=== PATIENT | male | born 1965 | race Caucasian/White ===

== ENCOUNTER 2017-04-19 10:00 | Day surgery (SDC) | payer BC, OTHER ==
[~2017-04-19] VITALS: Ht 188 cm; Wt 117.9 kg
[2017-04-19] VITALS (17 sets, daily range): BP systolic 106–233; BP diastolic 85–102
[~2017-04-19 10:00] MED LIST: ATEN100T PO; ATN50T; BNZ40T; CATHETER FLUSH 10 ML SYR IV PRN; CLON0.3T4; CRV25T; DXZS2T; FLD5TCR; HCT25T; HYDR-3002; HYDR-34; HYDR25TA4 PO; KCL20TCR; LOVA20TA2 PO; LSNP20T; LVF500T; LVST20T; METF1000 PO; MTF500T; SPIR25TA PO
--- NOTE | 2017-04-19 10:56 | Cardiology History & Physical ---
HPI-Cardiology Cardiology H&P Date of Admission 04-19-17 Primary Care Physician Doron Joshua DO Attending Physician Elia Vela MD Facp Fac Ccds Consulting Physician JAMES Mr. Naidu is a 52 year old male admitted as a direct admit to ICU 5 from stress lab today. He reports he has had 2 episodes while at work of a sudden onset of diaphoresis, nausea, generalized weakness, chest discomfort and shortness of breath. He reports the shortness of breath can last for 20-30 minutes, but the weakness can persist for several hours. He reports at times he feels like he can not get a good breath in and this can occur without r/t physical exertion. No c/o palpitations, syncope or near syncope. No c/o LE edema. He does not report any chest discomfort at this time. No c/o dyspnea at this time. Review of Systems-Cardiology Review of Systems Constitutional: As described under HPI, No As described under HPI, No no symptoms reported, No chills, No fever, No lightheadedness Eyes: No As described under HPI, No no symptoms reported, No blindness, No blurred vision, No contact lenses, No drainage, No decreased acuity, No foreign body sensation, No pain, No vision change Ears/Nose/Throat: No As described under HPI, No no symptoms reported, No chronic hearing loss, No ear discharge, No ear pain, No nasal drainage, No ulcerations Respiratory: No no symptoms reported, As described under HPI, No As described under HPI, No cough, No orthopnea, No shortness of breath, No SOB with excertion Cardiovascular: No no symptoms reported, As described under HPI, No As described under HPI, No chest pain, No edema, No irregular heart rate, No lightheadedness, No palpitations Gastrointestinal: No no symptoms reported, No As described under HPI, No abdomen distended, No abdominal pain, No blood streaked bowels, No constipation , No diarrhea, No nausea, No vomiting, No stool coloration changes Genitourinary: No As described under HPI, No burning, No dysuria, No discharge , No frequency, No flank pain, No hematuria, No urgency Skin: No rash, No skin related problems, No ulcerations Psychiatric/Neurological: No anxiety, No depression, No focal weakness, No seizure, No syncope Hematologic: No bleeding abnormalities HIY-Orpmjv-Chcsiz Hx Patient Social History Recent Foreign Travel: No Past Medical History PMH As described under Assessment. Family Medical History Family Medical History: He reports is father had HTN. He reports a sister with DM. No family h/o premature CAD or SCD. Allergies and Home Medications Allergies Coded Allergies: No Known Drug Allergies (Verified , 03/24/16) Home Medications Atenolol 100 Mg Tablet, 100 MG PO DAILY, (Reported) Canagliflozin 300 Mg Tablet, 300 MG PO DAILY, (Reported) Hydrochlorothiazide 25 Mg Tablet, 50 MG PO BID, (Reported) Lovastatin 20 Mg Tablet, 20 MG PO DAILY, (Reported) Metformin HCl 1,000 Mg Tablet, 1,000 MG PO BID, (Reported) Spironolactone 25 Mg Tablet, 25 MG PO BID, (Reported) Physical Exam-Cardiology Physical Exam Vital Signs/I&O Vital Sign - Last 12Hours 04/19/17 04/19/17 04/19/17 04/19/17 07:59 08:04 08:09 08:20 Pulse 70 93 120 89 B/P (MAP) 120/86 167/85 233/94 139/98 Pulse Ox 98 98 98 98 04/19/17 04/19/17 04/19/17 04/19/17 08:23 08:27 08:29 08:31 Pulse 91 91 89 89 B/P (MAP) 137/96 132/95 124/96 124/98 Pulse Ox 98 98 98 04/19/17 13:00 Pulse 66 Capillary Refill : Constitutional: appears stated age, No apparent distress, well-developed, well- nourished HEENT: PERRL, No discharge, hearing is well preserved, oral hygience is good, No ulceration, No xanthelasmas are seen Neck: No carotid bruit, carotid pulses are 2 + bilaterally Respiratory: No accessory muscle use, No respiratory distress, chest expansion is symmetric, chest is bilaterally symmetric, lungs clear to percussion, lungs clear to auscultation Cardiovascular: regular rate-rhythm, No JVD, S1 and S2 Gastrointestinal: No tender, soft, round, audible bowel sounds, No spleenomegaly Extremities: No clubbing, No cyanosis, No significant edema Neurologic/Psychiatric: alert, oriented x 3, power is 5/5 both on sides Skin: No rash, No ulcerations Data Review Labs Laboratory Tests 04/19/17 10:58: Prothrombin Time 12.7, INR Comment 1.0, Sodium Level 137, Potassium Level 3.1L, Chloride Level 100, Carbon Dioxide Level 21, Anion Gap 16H, Blood Urea Nitrogen 24H, Creatinine 1.24, Estimat Glomerular Filtration Rate > 60, BUN/Creatinine Ratio 19, Glucose Level 271H, Calcium Level 9.9, Magnesium Level 2.2, Total Bilirubin 1.1H, Aspartate Amino Transf (AST/SGOT) 13, Alanine Aminotransferase ( ALT/SGPT) 26, Alkaline Phosphatase 61, Total Protein 7.4, Albumin 4.4, Triglycerides Level 468H, Cholesterol Level 237H, LDL Cholesterol Direct 109, VLDL Cholesterol 94H, HDL Cholesterol 35L A/P-Cardiology Assessment/Admission Diagnosis Coronary ischemia, as suggested by symptoms and stress test today Abnormal stress test on 04-19-17 Chest discomfort with dyspnea of undetermined etiology HTN - reports high blood pressure since his teen years. Was previously being monitored at [facility], but has been controlled and has not seen then in 8- 9 years Reports h/o AAA for which he was following with [facility] every 6 months, but has not had an u/s in 7-8 years HLD - statin tx followed by his PCP DM H/O lap band surgery Reports h/o "enlarged heart since his teen years" BMI of approx 33 Discussion and Recomendations Abnormal stress test along with episodes of chest discomfort and dyspnea with risk factors as listed above. We advise cardiac cath to be done. We have discussed with him and his family the procedure, risks, benefits and potential complications of cardiac cath with possible ad hoc coronary intervention. He provides informed consent. We will proceed tomorrow or sooner if indicated. We will continue his home medications including BB and statin. We will start ASA 81 mg daily. We will do echocardiogram to evaluate structure. We will do an aorto u/s d/t h/o AAA for which he has not had f/u on in many years. Further recommendations will be based on his hospital course. This H&P is being scribed by Ankur Rodriguez APRN on behalf of Dr. Vela after discussion regarding plan of care. Physician Assessment Physician Assessment No cp at this time Lungs: clear Cor: reg with soft JORDAN at cardiac base Ext: no C/C/E A&R * As documented in our note above, that I updated at the time of this writing, and as documented below * We recommend card cath for further eval treatment. I discussed the rationale, procedure, risks, and benefits of card cath and ad hoc cor intervention with him. He understands and provides informed consent * I also discussed his case in detail with Dr Joshua this am FRANCA RODRIGUEZ Apr 19, 2017 10:55 ELIA VELA MD FACP [facility] CCDS Apr 19, 2017 14:25
[2017-04-19] MEDS ORDERED: ASPIRIN 81 MG CHEW (CHILDREN'S ASA) PO ONE (11:15)
[2017-04-19] MEDS ORDERED: SPIR25TA3 PO (11:16)
[2017-04-19] MEDS ORDERED: CANA300T PO (11:16)
[2017-04-19 11:18] LABS: PROTHROMBIN TIME PATIENT 12.7 SEC (12.2-14.7)
[2017-04-19 11:28] LABS: ALANINE AMINOTRANSFERASE 26 U/L (0-55); ALBUMIN 4.4 GM/DL (3.2-4.5); ANION GAP 16 MMOL/L (5-14); ASPARTATE AMINO TRANSFERASE 13 U/L (5-34); BILIRUBIN,TOTAL 1.1 MG/DL (0.1-1.0); BLOOD UREA NITROGEN 24 MG/DL (7-18); BUN/CREATININE RATIO 19; CALCIUM 9.9 MG/DL (8.5-10.1); CARBON DIOXIDE 21 MMOL/L (21-32); CHLORIDE 100 MMOL/L (98-107); CHOLESTEROL 237 MG/DL (< 200); CREATININE SERUM 1.24 MG/DL (0.60-1.30); DIRECT LDL 109 MG/DL (1-129); GFR ESTIMATED > 60; GLUCOSE 271 MG/DL (70-105); MAGNESIUM 2.2 MG/DL (1.8-2.4); POTASSIUM 3.1 MMOL/L (3.6-5.0); SODIUM 137 MMOL/L (135-145); TOTAL PROTEIN 7.4 GM/DL (6.4-8.2); TRIGLYCERIDES 468 MG/DL (<150); VLDL CHOLESTEROL 94 MG/DL (5-40)
[2017-04-19] MEDS ORDERED: KCL 20 MEQ TAB (K-DUR) PO NR (13:15)
[2017-04-19] MEDS ORDERED: ASPIRIN 81 MG CHEW (CHILDREN'S ASA) ONE (13:42)
--- NOTE | 2017-04-19 13:56 | Diagnostic Imaging Report ---
Ultrasound of the aorta. INDICATION: AAA. FINDINGS: The caliber of the abdominal size is up to 2.7 cm proximally, 2.5 cm at mid segment, and it is obscured distally. The right common iliac artery is 1.1 cm, and the left common iliac artery is obscured by bowel gas. IMPRESSION: The distal abdominal aorta is obscured by bowel gas. The proximal abdominal aorta is ectatic. Dictated by: Dictated on workstation # [id number]
[2017-04-19] MEDS: HYDROCHLOROTHIAZIDE 25 MG (HCTZ) TAB PO SCH (17:35)
[2017-04-19] MEDS: SPIRONOLACTONE 25 MG (ALDACTONE) TAB PO SCH (20:48)
[2017-04-19] MEDS ORDERED: SIMvastatin 10 MG (ZOCOR) TAB PO SCH (21:00)
[2017-04-20] VITALS (14 sets, daily range): BP systolic 109–142; BP diastolic 75–93
[2017-04-20 04:02] LABS: MEAN PLATELET VOLUME 9.4 FL (7.4-10.4); RED BLOOD COUNT 5.15 10^6/uL (4.35-5.85); RED CELL DISTRIBUTION WIDTH 13.1 % (10.0-14.5); WHITE BLOOD COUNT 9.1 10^3/uL (4.3-11.0)
[2017-04-20 04:20] LABS: ANION GAP 12 MMOL/L (5-14); BLOOD UREA NITROGEN 18 MG/DL (7-18); BUN/CREATININE RATIO 17; CALCIUM 9.6 MG/DL (8.5-10.1); CARBON DIOXIDE 29 MMOL/L (21-32); CHLORIDE 98 MMOL/L (98-107); CREATININE SERUM 1.06 MG/DL (0.60-1.30); GFR ESTIMATED > 60; GLUCOSE 173 MG/DL (70-105); POTASSIUM 3.1 MMOL/L (3.6-5.0); SODIUM 139 MMOL/L (135-145)
[2017-04-20] MEDS: HYDROCHLOROTHIAZIDE 25 MG (HCTZ) TAB PO SCH (06:26)
[2017-04-20] MEDS: NS IV 1000 ML 1,000 ML IV SCH ×3 (06:26→17:48)
[2017-04-20] MEDS ORDERED: NON-FORMULARY MEDICATION 1 EA EA (Canagliflozin (Invokana) 300 MG) PO SCH (09:00)
[2017-04-20] MEDS: SPIRONOLACTONE 25 MG (ALDACTONE) TAB PO SCH ×2 (10:34→21:05)
[2017-04-20] MEDS: ATENOLOL 50 MG (TENORMIN) TAB PO SCH (10:34)
[2017-04-20] MEDS ORDERED: HEParin (CATH LAB) 2,000 ML IV ONE (14:01)
[2017-04-20] MEDS ORDERED: NS IV 1000 ML 1,000 ML ONE (14:01)
[2017-04-20] MEDS ORDERED: MIDAZOLAM 5 MG/5 ML (VERSED) VIAL ONE (14:08)
[2017-04-20] MEDS ORDERED: fentaNYL INJECTION 100 MCG/2 ML AMP ONE (14:09)
[2017-04-20] MEDS ORDERED: diphenhydrAMINE 50 MG/ML INJ (BENADRYL) ONE (14:09)
--- NOTE | 2017-04-20 14:23 | Cardiac Procedure Note-CS/ASA ---
Pre-Procedure Note Pre-Op Procedure Note H&P Reviewed The H&P was reviewed, patient examined and no changes noted. Date H&P Reviewed: Apr 20, 2017 Time H&P Reviewed: 14:23 Conscious Sedation Pre-Proced Time Reviewed: 14:23 ASA Class: 3 Airway Mallampati Classification: ([place] appropriate class) I. II. III, IV Lungs Heart ASA score ASA 1: a normal healthy patient ASA 2: a patient with a mild systemic disease (mid diabetes, controlled hypertension, obesity ASA 3: a patient with a severe systemic disease that limits activity (angina , COPD, prior Myocardial infarction) ASA 4: a patient with an incapacitating disease that is a constant threat to life (CHF, renal failure) ASA 5: a moribund patient not expected to survive 24 hrs. (ruptured aneurysm) ASA 6: a declared brain patient whose organs are being harvested. For emergent operations, add the letter E after the classification Grade 2 Sedation Plan: Analgesia, Amnesia, Plan communicated to team members, Discussed options with patient/fam, Discussed risks with patient/fam Note The patient is an appropriate candidate to undergo the planned procedure, sedation, and anesthesia. The patient immediately re-assessed prior to indication. CINDY REGAN MD FACP [facility] CCDS Apr 20, 2017 14:23
[2017-04-20] MEDS ORDERED: KCL 20 MEQ TAB (K-DUR) PO NR ×2 (14:30→17:30)
[2017-04-20] MEDS ORDERED: HEParin 1000 UNIT/ML (10ML VIAL) FOR BOLUS ONE (14:59)
[2017-04-20] MEDS ORDERED: EPTIFIBATIDE DRIP 100 ML IV ONE (14:59)
[2017-04-20] MEDS ORDERED: NITROGLYCERIN DRIP 25 MG/D5W 250 ML IV ONE (14:59)
[2017-04-20] MEDS ORDERED: EPTIFIBATIDE BOLUS 20 ML IV ONE (14:59)
[2017-04-20] MEDS ORDERED: MIDAZOLAM 2 MG/2 ML (VERSED) VIAL ONE (15:27)
[2017-04-20] MEDS ORDERED: CLOPIDOGREL 300 MG (PLAVIX) TABLET PO ONE (16:02)
[2017-04-20] MEDS ORDERED: ASPIRIN 81 MG CHEW (CHILDREN'S ASA) ONE (16:03)
[2017-04-20] MEDS ORDERED: PATIENT MAY USE OWN MEDS, ALL PO SCH (17:00)
--- NOTE | 2017-04-20 17:05 | Progress Note-Cardiology ---
Cardiology SOAP Progress Note Subjective: No recurrent cp. Denies shortness of breath at rest. No palp or syncope Objective: I&O/Vital Signs Vital Sign - Last 12Hours 04/20/17 04/20/17 04/20/17 04/20/17 07:00 07:55 07:55 12:17 Temp 96.9 97.2 Pulse 59 67 63 Resp 10 14 B/P (MAP) 142/93 142/93 Pulse Ox 95 93 O2 Delivery Room Air Room Air Room Air 04/20/17 13:00 Pulse 54 Intake and Output 04/20/17 00:00 Intake Total 1700 ml Output Total 800 ml Balance 900 ml Weight (Pounds): 255 Weight (Ounces): 4.0 Weight (Calculated Kilograms): 115.112724 Constitutional: appears stated age, No apparent distress, well-developed, well- nourished Respiratory: No accessory muscle use, No respiratory distress, chest expansion is symmetric, chest is bilaterally symmetric, lungs clear to percussion, lungs clear to auscultation Cardiovascular: regular rate-rhythm, No JVD, S1 and S2 Gastrointestional: No tender, soft, round, audible bowel sounds, No spleenomegaly Extremities: No clubbing, No cyanosis, No significant edema Neurologic/Psychiatric: alert, oriented x 3, power is 5/5 both on sides Skin: No rash, No ulcerations Results/Procedures: Labs Laboratory Tests 04/20/17 03:36: White Blood Count 9.1, Red Blood Count 5.15, Hemoglobin 16.0, Hematocrit 45, Mean Corpuscular Volume 86, Mean Corpuscular Hemoglobin 31, Mean Corpuscular Hemoglobin Concent 36, Red Cell Distribution Width 13.1, Platelet Count 275, Mean Platelet Volume 9.4, Sodium Level 139, Potassium Level 3.1L, Chloride Level 98, Carbon Dioxide Level 29, Anion Gap 12, Blood Urea Nitrogen 18, Creatinine 1.06, Estimat Glomerular Filtration Rate > 60, BUN/Creatinine Ratio 17, Glucose Level 173H, Calcium Level 9.6 A/P: Assessment: Coronary ischemia, as suggested by symptoms and stress test on 04/19/17, treated with distal RCA stenting (see below) CAD: 30% distal LMCA, 50-60% prox LAD, 70-80% prox RICARDO, 50% prox RCA, 90-95% distal RCA that was treated with overlapping Alp Xience 2.25x23 (distal) and 2.75x12 stents on 04/20/17 LVEF 70% and LVEDP 4 mmHg on card cath of 04/20/17 HTN - reports high blood pressure since his teen years. Was previously being monitored at [facility], but has been controlled and has not seen then in 8- 9 years Reports h/o AAA, but there is no aneurysm of the desc thoracic or of the abd aorta on angiography of 04/20/17 HLD - statin tx followed by his PCP DM H/O lap band surgery Reports h/o "enlarged heart since his teen years" BMI of approx 33 Plan: Add ASA and clopidogrel Stop low dose simva and start high dose atorvastatin We have advised him to quit smoking immediately and completely I spoke with him and his fam regarding cath findings and treatments undertaken Follow labs closely Will plan on OM1 PCI and prox LAD FFR after allowing adequate recovery from today's dye load CINDY REGAN MD FACP [facility] CCDS Apr 20, 2017 17:05
[2017-04-20] MEDS ORDERED: ATORVASTATIN 80 MG (LIPITOR) TABLET PO SCH (21:00)
[2017-04-21 00:09] VITALS: BP 122/84
[2017-04-21] MEDS: NS IV 1000 ML 1,000 ML IV SCH (03:20)
[2017-04-21 03:50] LABS: MEAN PLATELET VOLUME 9.7 FL (7.4-10.4); RED BLOOD COUNT 4.7 10^6/uL (4.35-5.85); RED CELL DISTRIBUTION WIDTH 12.8 % (10.0-14.5); WHITE BLOOD COUNT 8.5 10^3/uL (4.3-11.0)
[2017-04-21 04:07] LABS: ANION GAP 15 MMOL/L (5-14); BLOOD UREA NITROGEN 15 MG/DL (7-18); BUN/CREATININE RATIO 16; CALCIUM 8.7 MG/DL (8.5-10.1); CARBON DIOXIDE 21 MMOL/L (21-32); CHLORIDE 101 MMOL/L (98-107); CREATININE SERUM 0.93 MG/DL (0.60-1.30); GFR ESTIMATED > 60; GLUCOSE 181 MG/DL (70-105); POTASSIUM 2.8 MMOL/L (3.6-5.0); SODIUM 137 MMOL/L (135-145)
[2017-04-21] MEDS: KCL 20 MEQ TAB (K-DUR) PO SCH ×3 (07:44→11:34)
[2017-04-21] MEDS: ATENOLOL 50 MG (TENORMIN) TAB PO SCH (07:45)
[2017-04-21 07:46] VITALS: BP 141/94
[2017-04-21] MEDS ORDERED: ASPIRIN E.C. 81 MG (ECOTRIN) TAB PO SCH (09:00)
[2017-04-21] MEDS ORDERED: CLOPIDOGREL 75 MG (PLAVIX) TABLET PO SCH (09:00)
--- NOTE | 2017-04-21 09:25 | Progress Note-Cardiology ---
Cardiology SOAP Progress Note Subjective: No cp or palp or syncope or leg discomfort. Wishes to go home Objective: I&O/Vital Signs Vital Sign - Last 12Hours 04/21/17 04/21/17 04/21/17 04/21/17 00:09 01:00 07:00 07:45 Temp 97.1 Pulse 59 55 54 Resp 18 B/P (MAP) 122/84 Pulse Ox 98 O2 Delivery Room Air Room Air 04/21/17 07:46 Temp 96.9 Pulse 71 Resp 11 B/P (MAP) 141/94 Pulse Ox 93 O2 Delivery Room Air Intake and Output 04/21/17 00:00 Intake Total 720 ml Balance 720 ml Weight (Pounds): 260 Weight (Ounces): 4.0 Weight (Calculated Kilograms): 117.019602 Constitutional: appears stated age, No apparent distress, well-developed, well- nourished Respiratory: No accessory muscle use, No respiratory distress, chest expansion is symmetric, chest is bilaterally symmetric, lungs clear to percussion, lungs clear to auscultation Cardiovascular: regular rate-rhythm, No JVD, S1 and S2 Gastrointestional: No tender, soft, round, audible bowel sounds, No spleenomegaly Extremities: No clubbing, No cyanosis, No significant edema Neurologic/Psychiatric: alert, oriented x 3, power is 5/5 both on sides Skin: No rash, No ulcerations Results/Procedures: Labs Laboratory Tests 04/21/17 03:14: White Blood Count 8.5, Red Blood Count 4.70, Hemoglobin 14.8, Hematocrit 40, Mean Corpuscular Volume 86, Mean Corpuscular Hemoglobin 32, Mean Corpuscular Hemoglobin Concent 37H, Red Cell Distribution Width 12.8, Platelet Count 251, Mean Platelet Volume 9.7, Sodium Level 137, Potassium Level 2.8L, Chloride Level 101, Carbon Dioxide Level 21, Anion Gap 15H, Blood Urea Nitrogen 15, Creatinine 0.93, Estimat Glomerular Filtration Rate > 60, BUN/Creatinine Ratio 16, Glucose Level 181H, Calcium Level 8.7, Magnesium Level 2.0 Laboratory Tests 04/19/17 10:58 04/20/17 03:36 04/21/17 03:14 A/P: Assessment: Coronary ischemia, as suggested by symptoms and stress test on 04/19/17, treated with distal RCA stenting (see below) CAD: 30% distal LMCA, 50-60% prox LAD, 70-80% prox RICARDO, 50% prox RCA, 90-95% distal RCA that was treated with overlapping Alp Xience 2.25x23 (distal) and 2.75x12 stents on 04/20/17 LVEF 70% and LVEDP 4 mmHg on card cath of 04/20/17 HTN - reports high blood pressure since his teen year Hypokalemia, likely due to diuretic therapy Reports h/o AAA, but there is no aneurysm of the desc thoracic or of the abd aorta on angiography of 04/20/17 HLD - statin tx followed by his PCP DM H/O lap band surgery Reports h/o "enlarged heart since his teen years" BMI of approx 33 Plan: Added ASA and clopidogrel Started high dose atorvastatin Replenish K Stop diuretics Add ARB for bp control We have advised him to quit tobacco use immediately and completely I spoke with him and his fam regarding cath findings and treatments undertaken Follow closely as outpatient CINDY REGAN MD FACP [facility] CCDS Apr 21, 2017 09:25
[2017-04-21] MEDS ORDERED: ATOR80TA76 PO (09:30)
[2017-04-21] MEDS ORDERED: ASPI-999 PO (09:30)
[2017-04-21] MEDS ORDERED: LOSA100T3 PO (09:30)
[2017-04-21] MEDS ORDERED: CLOP75TA69 PO (09:30)
--- NOTE | 2017-04-21 09:31 | Discharge Inst-Post CATH ---
Discharge Inst-CATH Post Cardiac Cath D/C Inst Follow Up/Plan Follow up with Dr Vela in one week CARDIAC CATH DISCHARGE INSTRUCTIONS *Hold Metformin for 48 hours post heart cath. ACTIVITY * Go Home directly and rest. * Limit activity of the leg (or wrist if it was used) for 7 days including aerobics, swimming, jogging, bicycling, etc. * Restrict stair-climbing for 7 days if possible, if not, climb up with your non -cath leg, then bring together on the same step. * Avoid lifting, pushing, pulling or excessive movement of the affected extremity for 7 days. * Customary sexual activity may be resumed after 2 days-use caution not to use a position that strains or causes pain to the affected extremity. * No driving for 24 hours. * NO SMOKING. * Avoid straining for bowel movements for 7 days. * Gentle walking on level ground is allowed. * Returning to work will depend on the type of procedure and the results. Your doctor will discuss this with you. CALL YOUR DOCTOR FOR ANY OF THE FOLLOWING: *If bleeding from the puncture site occurs- Apply gentle pressure to site with clean cloth and call your doctor or EMS. * If a knot or lump forms under the skin, increases in size, or causes pain. * If bruising appears to be worsening or moving further down your leg instead of disappearing. * Temperature above 101 F. CARE OF YOUR GROIN INCISION; * Bruising or purple discoloration of the skin near the puncture site is common. * You may shower only, no bathtub bathing for 5 days. Be careful to avoid slipping as your leg may feel stiff. * If a closure device was used on your femoral artery, please see the attached guide regarding care of the device and your leg. * REMOVE the dressing from your groin the next day after your procedure in the shower. CARE OF YOUR WRIST INCISION; * Bruising or purple discoloration of the skin near the puncture site is common. * You may shower. * DO NOT submerge wrist. * Remove dressing in 24 hours. CINDY VELA MD [facility]S Apr 21, 2017 09:31
--- NOTE | 2017-04-21 09:33 | Discharge Inst-Cardiology ---
Discharge Inst-Cardiac Discharge Medications New Medications: Aspirin (Aspirin) 81 Mg Tab.chew 81 MG PO DAILY, #90 TAB 3 Refills Atorvastatin Calcium (Atorvastatin Calcium) 80 Mg Tablet 80 MG PO DAILY, #90 TAB 3 Refills Clopidogrel Bisulfate (Plavix) 75 Mg Tablet 75 MG PO DAILY, #100 TAB 3 Refills Losartan Potassium (Cozaar) 100 Mg Tablet 100 MG PO DAILY, #90 TAB 3 Refills Continued Medications: Atenolol (Atenolol) 100 Mg Tablet 100 MG PO DAILY, TAB Canagliflozin (Invokana) 300 Mg Tablet 300 MG PO DAILY Metformin HCl (Metformin HCl) 1,000 Mg Tablet 1000 MG PO BID, TAB Discontinued Medications: Hydrochlorothiazide (Hydrochlorothiazide) 25 Mg Tablet 25 MG PO BID, TAB Lovastatin (Lovastatin) 20 Mg Tablet 20 MG PO DAILY, TAB Spironolactone (Spironolactone) 25 Mg Tablet 25 MG PO BID Patient Instructions Patient Instructions: Hold metformin until tomorrow evening No tobacco use Activity & Diet Discharge Diet: ADA Diet (1500 kCal) Orders-Post D/C & Referrals Pneu Vac Indicated: Yes CINDY REGAN MD FACP [facility]S Apr 21, 2017 09:33
--- NOTE | 2017-04-21 09:38 | Cardiology Discharge Summary ---
Diagnosis/Chief Complaint Date of Admission Apr 19, 2017 at 10:00 Date of Discharge 04/21/17 Final/Discharge Diagnosis Coronary ischemia, as suggested by symptoms and stress test on 04/19/17, treated with distal RCA stenting (see below) CAD: 30% distal LMCA, 50-60% prox LAD, 70-80% prox RICARDO, 50% prox RCA, 90-95% distal RCA that was treated with overlapping Alp Xience 2.25x23 (distal) and 2.75x12 stents on 04/20/17 LVEF 70% and LVEDP 4 mmHg on card cath of 04/20/17 HTN - reports high blood pressure since his teen year Hypokalemia, likely due to diuretic therapy Reports h/o AAA, but there is no aneurysm of the desc thoracic or of the abd aorta on angiography of 04/20/17 HLD - statin tx followed by his PCP DM H/O lap band surgery Reports h/o "enlarged heart since his teen years" BMI of approx 33 Chronic chew tobacco use (advised to quit during this hospitalization) Chief Complaint/HPI Chief Complaint/HPI Mr. Naidu is a 52 year old male admitted as a direct admit to ICU 5 from stress lab today. He reports he has had 2 episodes while at work of a sudden onset of diaphoresis, nausea, generalized weakness, chest discomfort and shortness of breath. He reports the shortness of breath can last for 20-30 minutes, but the weakness can persist for several hours. He reports at times he feels like he can not get a good breath in and this can occur without r/t physical exertion. No c/o palpitations, syncope or near syncope. No c/o LE edema. He does not report any chest discomfort at this time. No c/o dyspnea at this time. Please refer to my note of 04/21/17 for condition at discharge. K is being replenished prior to discharge Time spent [id number] with the patient: 9:05 - 9:40 am Discharge Summary Procedures Card cath and cor intervention on 04/20/17 Hospital Course Pending Labs Laboratory Tests 04/21/17 03:14: White Blood Count 8.5, Red Blood Count 4.70, Hemoglobin 14.8, Hematocrit 40, Mean Corpuscular Volume 86, Mean Corpuscular Hemoglobin 32, Mean Corpuscular Hemoglobin Concent 37, Red Cell Distribution Width 12.8, Platelet Count 251, Mean Platelet Volume 9.7, Sodium Level 137, Potassium Level 2.8, Chloride Level 101, Carbon Dioxide Level 21, Anion Gap 15, Blood Urea Nitrogen 15, Creatinine 0.93, Estimat Glomerular Filtration Rate > 60, BUN/Creatinine Ratio 16, Glucose Level 181, Calcium Level 8.7, Magnesium Level 2.0 Discussion & Recommendations Home Medications Reviewed patient Home Medication Reconciliation Form Discharge Home Medications: Reviewed and agree with Discharge Medication list on patient's Discharge Instruction sheet Instructions to patient/family Follow up with Dr Vela in one week Clinical Quality Measures DVT/VTE Risk/Contraindication: Risk Factor Score Per Nursin RFS Level Per Nursing on Admit: 1=Low/No VTE PPX CINDY VELA MD FACP [facility]S Apr 21, 2017 09:38
[2017-04-21 11:30] VITALS: BP 119/65
--- NOTE | 2017-04-24 10:22 | CARDIAC CATHETERIZATION ---
DATE OF SERVICE: 04/20/2017 The patient is a 52-year-old man who has multiple coronary artery disease risk factors and who has been experiencing chest discomfort and shortness of breath. A stress test carried out on 04/19/2017 was consistent with coronary ischemia. Cardiac catheterization is carried out today after having obtained an informed consent for cardiac catheterization and possible ad hoc coronary intervention. He reports a history of abdominal aortic aneurysm and informed consent was also obtained for aortic angiography. PROCEDURE: He was brought to the cardiac catheterization laboratory in a fasting state. Right groin was prepared and draped in the usual sterile fashion. Lidocaine 1% for local anesthesia. Modified Seldinger technique was used to advance a 5-Luxembourger sheath into the right femoral artery. A 5-Luxembourger JL4 catheter used for left coronary angiography. A 5-Luxembourger JR4 catheter, right coronary angiography. 5-Luxembourger pigtail catheter was used for left heart catheterization and left ventricular angiography. A 5-Luxembourger pigtail catheter was used for abdominal aortic angiography. Subsequently percutaneous intervention was carried out of the right coronary artery which is described below. Following completion of the right coronary intervention, we carried out descending thoracic aortic angiography with runoff into the proximal abdominal aorta. This was to make sure that there was no proximal abdominal aortic or distal thoracic aortic aneurysm because no infrarenal aortic aneurysm had been identified on the initial abdominal aortic angiography. In the end, femoral angiography of the right femoral artery was carried out through the sheath and Mynx was used to achieve hemostasis. He tolerated the procedure well. PERCUTANEOUS INTERVENTION TO THE RIGHT CORONARY ARTERY: We exchanged the sheath over a wire for a 6 Luxembourger sheath. We gave a double bolus of Integrilin and Integrilin infusion was continued throughout the procedure. We gave 7000 units of intravenous heparin. We initially used a 6-Luxembourger JR4 guide catheter with side holes to engage the right coronary artery and a choice floppy wire was advanced across the lesion in the distal right coronary artery and the tip was placed in the distal branch. We were not able to advance the balloon because of inadequate support from the guide catheter and tortuosity of the right coronary artery. The catheter and the wire were removed. We then engaged the right coronary artery with a Sheperd crook guide catheter and we used a wm wire system. We advanced a choice floppy and choice extra support PT wires across the lesion and the tips of the wire was placed in the distal branch. We were then able to advance an Emerge 2.0 x 30 mm balloon to the lesion and balloon angioplasty was carried out which reduced the stenosis from 95% to approximately 70%. The balloon was removed and we then advanced an Alpine Xience 2.25 x 23 mm stent to the distal right coronary artery and the stent was deployed at 12 atmospheres. It does extend across the posterior descending artery, but does not impair flow into it. There was yet another lesion proximal to the proximal edge of the stented area. We deployed another stent which is Alpine Xience 2.75 x 12 mm and the distal part of the stent slightly overlapped the proximal part of the first stent. This was deployed at 18 atmospheres. The area of overlap was also ballooned. Prior to deployment of the first end, we did pull out the choice floppy wire which had been used as a wm wire. Following the stent deployments, there is 0% residual stenosis at the site of 95% stenosis and flow throughout the vessel is normal. The mid and proximal right coronary arteries have up to 50% stenoses were not intervened on. Flow throughout the vessel was normal. HEMODYNAMICS: Left ventricular end-diastolic pressure following coronary angiography was 4 mmHg. There was no significant pressure gradient on pullback across the aortic valve. Ascending aortic pressure was 110/66 with a mean of 83 mmHg. LEFT VENTRICULAR ANGIOGRAPHY: Left ventricular angiography was carried out in the right anterior oblique projection. Global left ventricular systolic function is normal to hyperdynamic. Left ventricular ejection fraction is approximately 70 percent. There is no significant mitral regurgitation. CORONARY ANGIOGRAPHY: There is diffuse coronary calcification. Left main coronary artery has approximately 30% distal stenosis. Left anterior descending artery has approximately 50 to 60% proximal stenosis. The first obtuse marginal branch, left circumflex artery has a 70 to 80% proximal stenosis. The right coronary artery is dominant and has 50% proximal and mid vessel stenoses and 95% distal stenosis. To the severe distal stenosis of the right coronary artery, successful stenting was carried out with overlapping Promus 2.25 x 23 and 2.75 x 12 mm stents as detailed above. Following the stents, there is 0% residual stenosis in the distal right coronary artery. DESCENDING THORACIC AORTIC ROOT ANGIOGRAPHY: The descending thoracic aorta does not indicate any significant aneurysm or dissection. ABDOMINAL AORTIC ANGIOGRAPHY: Abdominal aortic angiography did not indicate any significant abdominal aortic aneurysm or dissection. The renal arteries are identified and do not exhibit significant disease. There is diffuse atherosclerosis of the abdominal aorta. The aortoiliac bifurcation is intact and does not exhibit significant stenosis. CONCLUSIONS: 1. Coronary artery disease as described above. There is 30% distal left main stenosis, 50-60% proximal left anterior descending artery stenosis, 70 to 80% proximal stenosis of the first obtuse marginal branch, 50% stenoses in the proximal and mid right coronary artery, and 90-95% stenosis in the distal right coronary artery to which successful stenting was carried out. The stents in the distal right coronary artery are Alpine Xience 2.25 x 23 mm (distal stent) and Alpine Xience 2.75 x 12 mm stent (proximal stent). These are overlapping stents. Following deployment of these stents, there is no significant residual stenosis. 2. Low normal left ventricular end-diastolic pressure. 3. Normal to hyperdynamic left ventricular systolic function with ejection fraction of 70%. 4. No significant mitral regurgitation. 5. No evidence of the descending thoracic or abdominal aortic aneurysm or dissection. 6. Abdominal aortic and aortoiliac atherosclerosis and calcification. DISCUSSION AND RECOMMENDATIONS: We advised to quit smoking immediately and completely. Aspirin and Plavix have been added to the regimen. Statin therapy is being continued. Beta biju therapy is being continued. He would need intervention to the first obtuse marginal branch and the circumflex artery which will be carried out at a later date. At that time, we will also consider fractional flow reserve measurement in the proximal left anterior descending artery which appears to have a moderate lesion. Job ID: [id number] DocumentID: [id number] Dictated Date: 04/20/2017 16:49:18 Sales And Marketing Professional Date: 04/24/2017 10:22:28 Dictated By: CINDY REGAN MD, MA, FACP, FACC, MTDD
--- NOTE | 2017-04-26 07:44 | STRESS TEST ---
DATE OF SERVICE: 04/19/2017 RESTING TECHNETIUM-99M TETROFOSMIN SPECT CT IMAGING ORDERING PHYSICIAN: Dr. Joshua. PRIMARY CARE PHYSICIAN: Dr. Joshua. CLINICAL DIAGNOSIS: Chest discomfort, shortness of breath. Baseline images were carried out after injection of 10.98 mCi of technetium-99m Tetrofosmin under Dr. Joshua's supervision. Subsequently Dr. Joshua carried out a stress test on the treadmill, which is reported separately. The electrocardiogram was suggestive of coronary ischemia and stress myocardial perfusion imaging was, therefore, not performed. Review of images at rest indicate good ventricular perfusion. There appears to be some degree of diaphragmatic attenuation. CONCLUSIONS: Resting only study which does not indicate significant resting perfusion abnormality of the left ventricle. Job ID: [id number] DocumentID: [id number] Dictated Date: 04/23/2017 17:11:51 Loin Puller Date: 04/24/2017 15:51:42 Dictated By: CINDY REGAN MD, MA, FACP, FACC,
== END 2017-04-21 12:00 | disposition home or self-care (01) ==
LOC: ICU 10:00 → CSDo 10:00 → ICU 10:00 → UNDOADMOB 10:00 → ICU 04-20 11:10 → UNDODISOB 04-21 12:00 → CSDo 04-21 12:00
PROVIDERS: ATTEND Internal Medicine Cardiovascular Disease
DX: I25.10 Atherosclerotic heart disease of native coronary artery without angina pectoris (principal); E87.6 Hypokalemia; I10 Essential (primary) hypertension; E03.9 Hypothyroidism, unspecified; E78.5 Hyperlipidemia, unspecified; E11.9 Type 2 diabetes mellitus without complications; F17.220 Nicotine dependence, chewing tobacco, uncomplicated; I25.84 Coronary atherosclerosis due to calcified coronary lesion; Z98.84 Bariatric surgery status; Z79.84 Long term (current) use of oral hypoglycemic drugs; Z79.899 Other long term (current) drug therapy
CPT/HCPCS: 36415; 75605; 75625; 76775; 78451; 80048; 80053; 80061; 83735; 85027; 85610; 93005; 93017; 93306; 93458; 93567

== ENCOUNTER → 2017-04-24 | Outpatient (CLI) | payer BC ==
[~2017-04-24] MED LIST changes: +ASPI-999 PO; +ATOR80TA76 PO; +CANA300T PO; -CATHETER FLUSH 10 ML SYR IV PRN; +CLOP75TA69 PO; +LOSA100T3 PO; +SPIR25TA3 PO
--- NOTE | 2017-04-24 14:39 | Diagnostic Imaging Report ---
EXAMINATION: Arteriovascular ultrasound. INDICATION: Lump in the right groin post cardiac catheterization 4 days ago. FINDINGS: There is a 3.5 x 0.7 x 2.2 cm hematoma anterior to the right common femoral artery. There is no pseudoaneurysm. There is a patent common femoral artery with triphasic waveforms. Patency of the common femoral vein is seen with normal venous waveforms. IMPRESSION: No pseudoaneurysm or evidence of AVM. Dictated by: Dictated on workstation # [id number]
== END ==
LOC: RAD 13:57
PROVIDERS: ATTEND Nurse Practitioner Family
DX: I97.630 Postprocedural hematoma of a circulatory system organ or structure following a cardiac catheterization (principal)
CPT/HCPCS: 93926

== ENCOUNTER 2017-05-08 07:08 | Day surgery (SDC) | payer BC ==
[~2017-05-08] VITALS: Ht 188 cm; Wt 130.8 kg
[2017-05-08] VITALS (8 sets, daily range): BP systolic 125–171; BP diastolic 83–103
[2017-05-08] MEDS ORDERED: HEParin (CATH LAB) 2,000 ML IV ONE (07:10)
[2017-05-08] MEDS ORDERED: NS IV 1000 ML 1,000 ML ONE ×2 (07:10→23:05)
[2017-05-08] MEDS ORDERED: NS IV 1000 ML 1,000 ML IV SCH ×2 (07:30→10:51)
[2017-05-08 07:47] LABS: MEAN PLATELET VOLUME 9.3 FL (7.4-10.4); RED BLOOD COUNT 4.57 10^6/uL (4.35-5.85); RED CELL DISTRIBUTION WIDTH 13.6 % (10.0-14.5); WHITE BLOOD COUNT 6.8 10^3/uL (4.3-11.0)
[2017-05-08 08:00] LABS: INR 0.9 (0.8-1.4); PROTHROMBIN TIME PATIENT 12.3 SEC (12.2-14.7)
[2017-05-08 08:11] LABS: ALANINE AMINOTRANSFERASE 23 U/L (0-55); ALBUMIN 4.1 GM/DL (3.2-4.5); ANION GAP 9 MMOL/L (5-14); ASPARTATE AMINO TRANSFERASE 15 U/L (5-34); BILIRUBIN,TOTAL 1.1 MG/DL (0.1-1.0); BLOOD UREA NITROGEN 10 MG/DL (7-18); BUN/CREATININE RATIO 11; CALCIUM 9.6 MG/DL (8.5-10.1); CARBON DIOXIDE 26 MMOL/L (21-32); CHLORIDE 108 MMOL/L (98-107); CHOLESTEROL 131 MG/DL (< 200); CREATININE SERUM 0.94 MG/DL (0.60-1.30); DIRECT LDL 72 MG/DL (1-129); GFR ESTIMATED > 60; GLUCOSE 144 MG/DL (70-105); POTASSIUM 3.4 MMOL/L (3.6-5.0); SODIUM 143 MMOL/L (135-145); TOTAL PROTEIN 6.5 GM/DL (6.4-8.2); TRIGLYCERIDES 151 MG/DL (<150); VLDL CHOLESTEROL 30 MG/DL (5-40)
[2017-05-08] MEDS ORDERED: diphenhydrAMINE 50 MG/ML INJ (BENADRYL) ONE (09:17)
[2017-05-08] MEDS ORDERED: fentaNYL INJECTION 100 MCG/2 ML AMP ONE (09:17)
[2017-05-08] MEDS ORDERED: MIDAZOLAM 5 MG/5 ML (VERSED) VIAL ONE (09:17)
[2017-05-08] MEDS ORDERED: EPTIFIBATIDE BOLUS 20 ML IV ONE (09:29)
[2017-05-08] MEDS ORDERED: HEParin 1000 UNIT/ML (10ML VIAL) FOR BOLUS ONE (09:29)
[2017-05-08] MEDS ORDERED: NITROGLYCERIN DRIP 25 MG/D5W 250 ML IV ONE (09:29)
--- NOTE | 2017-05-08 09:43 | Cardiac Procedure Note-CS/ASA ---
Pre-Procedure Note Pre-Op Procedure Note H&P Reviewed The H&P was reviewed, patient examined and no changes noted. Date H&P Reviewed: May 08, 2017 Time H&P Reviewed: 09:43 Conscious Sedation Pre-Proced Time Reviewed: :43 ASA Class: 3 Airway Mallampati Classification: ([place] appropriate class) I. II. III, IV Lungs Heart ASA score ASA 1: a normal healthy patient ASA 2: a patient with a mild systemic disease (mid diabetes, controlled hypertension, obesity ASA 3: a patient with a severe systemic disease that limits activity (angina , COPD, prior Myocardial infarction) ASA 4: a patient with an incapacitating disease that is a constant threat to life (CHF, renal failure) ASA 5: a moribund patient not expected to survive 24 hrs. (ruptured aneurysm) ASA 6: a declared brain patient whose organs are being harvested. For emergent operations, add the letter E after the classification Grade 2 Sedation Plan: Analgesia, Amnesia, Plan communicated to team members, Discussed options with patient/fam, Discussed risks with patient/fam Note The patient is an appropriate candidate to undergo the planned procedure, sedation, and anesthesia. The patient immediately re-assessed prior to indication. CINDY REGAN MD FACP FAC CCDS May 08, 2017 09:43
[2017-05-08] MEDS ORDERED: PATIENT MAY USE OWN MEDS, ALL PO SCH (11:00)
[2017-05-08] MEDS ORDERED: CLOPIDOGREL 75 MG (PLAVIX) TABLET PO ONE (11:30)
[2017-05-08] MEDS ORDERED: ASPIRIN 81 MG CHEW (CHILDREN'S ASA) PO ONE (11:30)
--- NOTE | 2017-05-08 11:39 | CARDIAC CATHETERIZATION ---
DATE OF SERVICE: 05/08/2017 PROCEDURE: Cardiac catheterization and coronary angiography. The patient is a 52-year-old man with multiple coronary artery disease risk factors who recently failed a stress test and subsequently underwent right coronary artery stenting on 04/20/2017. He was also found to have a severe lesion in an obtuse marginal artery. Today, he comes in for followup on his coronary anatomy and, if needed, further coronary stenting. DESCRIPTION OF PROCEDURE: He was brought to the cardiac catheterization laboratory in a fasting state. Right groin was prepared and draped in the usual sterile fashion. Lidocaine 1% local anesthesia. Modified Seldinger technique was used to advance a 5-Luxembourgish sheath into the right femoral artery. Modified Seldinger technique was used to advance a 6-Luxembourgish sheath in the right femoral artery. We used a 6-Luxembourgish JR4 diagnostic catheter to carry out angiography of the right coronary artery. Right coronary artery status appeared stable and the stents were patent. We then proceeded with left coronary angiography with a 6-Luxembourgish JL4 guide catheter. This indicated 90% stenosis within the proximal to mid second obtuse marginal branch of the left circumflex artery. We then proceeded with percutaneous intervention to the second obtuse marginal branch. PERCUTANEOUS INTERVENTION TO THE SECOND OBTUSE MARGINAL BRANCH OF THE LEFT CIRCUMFLEX ARTERY: We gave 6500 units of intravenous heparin. A double bolus of Integrilin was also given during the procedure. We used a 6-Luxembourgish JL4 guide catheter. We advanced a BMW wire across the lesion with moderate difficulty. We first carried out balloon angioplasty with Emerge 2.0 times 12 mm balloon. This reduced the stenosis from 90% to approximately 60%. The balloon was removed and we advanced Alpine Xience 2.25 x 18 mm stent. This was deployed at 14 atmospheres. The stent balloon was then removed. Subsequent angiography revealed 0% residual stenosis at the previous site, 90% stenosis of the second obtuse marginal branch. Flow throughout the vessel was normal. The patient tolerated the procedure well. The angioplasty equipment was removed. Angiography of the right femoral artery was carried out through the sheath. Mynx was used to achieve hemostasis. CORONARY ANGIOGRAPHY: The right coronary artery has a 50% proximal stenosis. In the distal right coronary artery the patient is known to have overlapping Xience 2.25 x 23 (distal) and a 2.75 x 12 (proximal) stents that were placed on 04/20/2017. These are widely patent and do not exhibit any significant instent restenosis. The proximal right coronary artery has 50% stenosis. The left main coronary artery has approximately 30% stenosis. The left anterior descending artery has 30% ostial and 50% proximal stenoses. The left anterior descending artery is quite heavily calcified. There is a ramus intermedius artery which has diffuse mild to moderate plaque. The left circumflex artery has a second obtuse marginal branch which had 90% proximal stenosis to which successful intervention was carried out as detailed above. Following deployment of Alpine Xience 2.5 x 18 mm stent, there is 0% residual stenosis within the second obtuse marginal branch left circumflex artery. CONCLUSIONS: Coronary artery disease as detailed above. There is 30% distal stenosis of the left main coronary artery and approximately 50% mid vessel stenosis of the left anterior descending artery. The second obtuse marginal branch of the left circumflex artery had a 90% stenosis to which successful stenting was carried out with Alpine Xience 2.25 x 18 mm stent which reduced the stenosis to 0% residual. The proximal right coronary has 50% stenosis. The distal right coronary artery is stented with overlapping Alpine Xience 2.25 x 23 mm and 2.75 x 12 mm stents (04/20/2017) that are widely patent. Job ID: [id number] DocumentID: [id number] Dictated Date: 05/08/2017 10:43:15 Estimator Paperboard Boxes Date: 05/08/2017 11:38:53 Dictated By: CINDY REGAN MD, MA, FACP, FACC,
[2017-05-08] MEDS: inSUlin (REGULAR) HUMAN 1 UNIT/0.01 ML (CHARGE PER UNIT) SC SCH ×2 (16:00→20:56)
[2017-05-09] VITALS: BP 114/92
[2017-05-09 04:00] VITALS: BP 156/88
[2017-05-09 04:48] LABS: MEAN PLATELET VOLUME 9.4 FL (7.4-10.4); RED BLOOD COUNT 4.23 10^6/uL (4.35-5.85); RED CELL DISTRIBUTION WIDTH 13.5 % (10.0-14.5)
[2017-05-09 05:13] LABS: ANION GAP 9 MMOL/L (5-14); BLOOD UREA NITROGEN 13 MG/DL (7-18); BUN/CREATININE RATIO 17; CALCIUM 8.7 MG/DL (8.5-10.1); CARBON DIOXIDE 24 MMOL/L (21-32); CHLORIDE 109 MMOL/L (98-107); CREATININE SERUM 0.76 MG/DL (0.60-1.30); GFR ESTIMATED > 60; GLUCOSE 98 MG/DL (70-105); POTASSIUM 3.3 MMOL/L (3.6-5.0); SODIUM 142 MMOL/L (135-145)
[2017-05-09] MEDS: inSUlin (REGULAR) HUMAN 1 UNIT/0.01 ML (CHARGE PER UNIT) SC SCH (05:33)
[2017-05-09 08:02] VITALS: BP 145/98
[2017-05-09] MEDS ORDERED: KCL 20 MEQ TAB (K-DUR) PO ONE (08:15)
[2017-05-09] MEDS ORDERED: KCL 20 MEQ TAB (K-DUR) PO NR (08:22)
--- NOTE | 2017-05-09 08:27 | Progress Note-Cardiology ---
Cardiology SOAP Progress Note Subjective: Sitting up in bed. No c/o CP, dyspnea, palpitations, syncope or near syncope. No c/o LE edema. No c/o right groin discomfort. Objective: I&O/Vital Signs Vital Sign - Last 12Hours 05/09/17 05/09/17 05/09/17 05/09/17 00:00 00:00 01:00 04:00 Temp 97.9 98.4 Pulse 56 45 52 Resp 20 18 B/P (MAP) 114/92 156/88 Pulse Ox 96 95 O2 Delivery Room Air Room Air Room Air 05/09/17 05/09/17 05/09/17 04:00 07:00 08:02 Temp 97.7 Pulse 48 58 Resp 18 B/P (MAP) 145/98 Pulse Ox 97 O2 Delivery Room Air Room Air Weight (Pounds): 187 Weight (Ounces): 3.2 Weight (Calculated Kilograms): 84.143661 Side: right Groin site without hematoma: Yes Condition: DP/PT pulses palpable, extremity w/d/p Bruising: mild bruising Constitutional: AAO x 3 Respiratory: No accessory muscle use, No respiratory distress, lungs clear to auscultation Cardiovascular: regular rate-rhythm, No JVD, S1 and S2 Gastrointestional: No tender, soft, round, audible bowel sounds Extremities: significant edema Neurologic/Psychiatric: grossly intact Skin: No rash Results/Procedures: Labs Laboratory Tests 05/08/17 16:53: Glucometer 126H 05/08/17 20:48: Glucometer 132H 05/09/17 04:13: White Blood Count 7.0, Red Blood Count 4.23L, Hemoglobin 13.0L, Hematocrit 38L, Mean Corpuscular Volume 91, Mean Corpuscular Hemoglobin 31, Mean Corpuscular Hemoglobin Concent 34, Red Cell Distribution Width 13.5, Platelet Count 199, Mean Platelet Volume 9.4, Sodium Level 142, Potassium Level 3.3L, Chloride Level 109H, Carbon Dioxide Level 24, Anion Gap 9, Blood Urea Nitrogen 13, Creatinine 0.76, Estimat Glomerular Filtration Rate > 60, BUN/Creatinine Ratio 17, Glucose Level 98, Calcium Level 8.7 Procedures S/P cardiac cath with successful intervention on 05-08-17. Please refer to Dr. Vela's cardiac cath report of 05-08-17 for details. A/P: Assessment: Coronary artery disease: Cardiac cath of 05-08-17: There is 30% distal stenosis of the left main coronary artery and approximately 50% mid vessel stenosis of the left anterior descending artery. The second obtuse marginal branch of the left circumflex artery had a 90% stenosis to which successful stenting was carried out with Alpine Xience 2.25 x 18 mm stent which reduced the stenosis to 0% residual. The proximal right coronary has 50% stenosis. The distal right coronary artery is stented with overlapping Alpine Xience 2.25 x 23 mm and 2.75 x 12 mm stents (04/20/2017) that are widely patent. LVEF 70% and LVEDP 4 mmHg on cardiac cath of 04-20-17 Relative bradycardia, albeit asymptomatic Weight gain since cessation of diuretics HTN Reports h/o AAA, but there is no aneurysm of the desc thoracic or of the abd aorta on angiography of 04-20-17 HLD - followed by his PCP DM H/O lab band surgery BMI of approx 33 Chronic chew tobacco use Chronic hypokalemia, even when taking potassium sparing diuretics - replace Plan: CAD with successful PCI on 05-08-17 We will reduce Atenolol dose in half d/t relative bradycardia; albeit asymptomatic We will add diuretics d/t reported weight gain and fluid retention We will add potassium replacement d/t seemingly chronic hypokalemia which has been documented on lab of March 2017 (even while on potassium sparing diuretics) and again on lab of May 08 and Close f/u as out pt on lab Continue other medications including ASA, Plavix, statin, BB and ARB F/U appt in 2 weeks Physician Assessment Physician Assessment He denies cp or palp or syncope or groin or leg discomfort. Notes wgt gain since being taken off diuretics Cor: reg Lungs: clear Ext: no c/c/e, no signs of inflammation or hematoma at site of access in the R groin A&R * As documented in our note above that I updated (italics) and as noted below * Given lack of adequate bp control, we are resuming diuretics * He has h/o hypokalemia on diuretics, even when on K-sparing diuretics. We are initiating K replacement with diuretics and have advised outpat f/u on blood work * We are reducing bb * We discussed in detail the findings of cath and procedures undertaken * I answered his and his 's questions * Risk factor modification reviewed * Outpatient f/u advised FRANCA HOLLOWAY COST ENGINEER May 09, 2017 08:27 CINDY VELA MD FACP [facility] CCDS May 09, 2017 09:52
[2017-05-09] MEDS ORDERED: TRIA1TAB3 PO (08:46)
--- NOTE | 2017-05-09 08:55 | Discharge Inst-Cardiology ---
Discharge Inst-Cardiac Discharge Medications New Medications: Atenolol (Atenolol) 50 Mg Tablet 50 MG PO DAILY, #30 TAB 4 Refills Potassium Chloride (Potassium Chloride) 10 Meq Capsule.er 10 MEQ PO DAILY, #30 CAP 3 Refills Triamterene/Hydrochlorothiazid (Triamterene-Hctz 37.5-25 mg Tb) 1 Each Tablet 1 EACH PO DAILY, #30 TAB 2 Refills Continued Medications: Aspirin (Aspirin) 81 Mg Tab.chew 81 MG PO DAILY, #90 TAB 3 Refills Atorvastatin Calcium (Atorvastatin Calcium) 80 Mg Tablet 80 MG PO DAILY, #90 TAB 3 Refills Canagliflozin (Invokana) 300 Mg Tablet 300 MG PO DAILY Clopidogrel Bisulfate (Plavix) 75 Mg Tablet 75 MG PO DAILY, #100 TAB 3 Refills Losartan Potassium (Cozaar) 100 Mg Tablet 100 MG PO DAILY, #90 TAB 3 Refills Metformin HCl (Metformin HCl) 1,000 Mg Tablet 1000 MG PO BID, TAB Discontinued Medications: Atenolol (Atenolol) 100 Mg Tablet 100 MG PO DAILY, TAB New, Converted or Re-Newed RX: Transmitted to Pharmacy Patient Instructions Patient Instructions: HOLD METFORMIN, MAY RESTART ON April Please schedule f/u appt in [address] Vela Lab: BMP and Mag level in a week FRANCA HOLLOWAY May 09, 2017 08:55
[2017-05-09] MEDS ORDERED: POTA10CA43 PO (08:56)
[2017-05-09] MEDS ORDERED: ATEN50TA PO (08:58)
[2017-05-09] MEDS ORDERED: ATORVASTATIN 80 MG (LIPITOR) TABLET PO SCH (09:00)
[2017-05-09] MEDS ORDERED: INVOKANA 300 MG PO SCH (09:00)
[2017-05-09] MEDS ORDERED: LOSARTAN 100 MG PO SCH (09:00)
[2017-05-09] MEDS ORDERED: ASPIRIN 81 MG CHEW (CHILDREN'S ASA) PO SCH (09:00)
[2017-05-09] MEDS ORDERED: ATENOLOL 100 MG PO SCH (09:00)
[2017-05-09] MEDS ORDERED: CLOPIDOGREL 75 MG (PLAVIX) TABLET PO SCH (09:00)
[2017-05-09 10:18] VITALS: BP 145/98
== END 2017-05-09 10:18 | disposition home or self-care (01) ==
LOC: CATH 07:08 → ICU 11:00 → CATH 05-09 10:18
PROVIDERS: ATTEND Internal Medicine Cardiovascular Disease
DX: I25.10 Atherosclerotic heart disease of native coronary artery without angina pectoris (principal); I25.84 Coronary atherosclerosis due to calcified coronary lesion; I10 Essential (primary) hypertension; E78.5 Hyperlipidemia, unspecified; E87.6 Hypokalemia; E11.9 Type 2 diabetes mellitus without complications; Z72.0 Tobacco use; Z98.84 Bariatric surgery status; Z79.84 Long term (current) use of oral hypoglycemic drugs; Z79.899 Other long term (current) drug therapy; Z95.5 Presence of coronary angioplasty implant and graft
CPT/HCPCS: 36415; 80048; 80053; 80061; 82962; 85027; 85610; 85730; 87081; 93005

== ENCOUNTER 2017-11-14 09:38 | Outpatient (CLI) | payer BC ==
[~2017-11-14] VITALS: Ht 188 cm; Wt 117.9 kg
[~2017-11-14 09:38] MED LIST changes: +ATEN50TA PO; +POTA10CA43 PO; +TRIA1TAB3 PO
[2017-11-14] MEDS ORDERED: POTA10TA10 PO (14:47)
[2017-11-14] MEDS ORDERED: ASPI-586 PO (14:47)
[2017-11-14] MEDS ORDERED: ATEN50TA PO (14:47)
[2017-11-14] MEDS ORDERED: LOSA100T28 PO (14:47)
[2017-11-14] MEDS ORDERED: TRIA1TAB3 PO (14:47)
[2017-11-14] MEDS ORDERED: ATOR80TA76 PO (14:47)
[2017-11-14] MEDS ORDERED: CLOP75TA28 PO (14:47)
[2017-11-16] MEDS ORDERED: PANT40TA2 PO (10:08)
== END 2017-11-14 14:51 ==
LOC: PREOP 09:38
PROVIDERS: ATTEND Surgery
DX: Z01.818 Encounter for other preprocedural examination (principal); R10.13 Epigastric pain

== ENCOUNTER 2017-11-16 09:55 | Day surgery (SDC) | payer BC ==
[~2017-11-16] VITALS: Ht 188 cm; Wt 117.9 kg
[~2017-11-16 09:55] MED LIST changes: +ASPI-586 PO; +CLOP75TA28 PO; +LOSA100T28 PO; +POTA10TA10 PO
--- NOTE | 2017-11-16 10:06 | Conscious Sedation/ASA ---
Conscious Sedation Pre-Proced Time Reviewed: 10:00 ASA Class: 2 Airway Mallampati Classification: ([place] appropriate class) I. II. III, IV Lungs Heart ASA score ASA 1: a normal healthy patient ASA 2: a patient with a mild systemic disease (mid diabetes, controlled hypertension, obesity ASA 3: a patient with a severe systemic disease that limits activity (angina , COPD, prior Myocardial infarction) ASA 4: a patient with an incapacitating disease that is a constant threat to life (CHF, renal failure) ASA 5: a moribund patient not expected to survive 24 hrs. (ruptured aneurysm) ASA 6: a declared brain patient whose organs are being harvested. For emergent operations, add the letter E after the classification Grade 2 Sedation Plan: Analgesia, Amnesia, Plan communicated to team members, Discussed options with patient/fam, Discussed risks with patient/fam Note The patient is an appropriate candidate to undergo the planned procedure, sedation, and anesthesia. The patient immediately re-assessed prior to indication. SKYE RAMIREZ MD Nov 16, 2017 10:06 am
--- NOTE | 2017-11-16 10:06 | Progress Note-Pre Operative ---
Pre-Operative Progress Note H&P Reviewed The H&P was reviewed, patient examined and no changes noted. Date Seen by Provider: Nov 16, 2017 Time Seen by Provider: 10:00 Date H&P Reviewed: Nov 16, 2017 Time H&P Reviewed: 10:00 Pre-Operative Diagnosis: GERD, dysphagia SKYE RAMIREZ MD Nov 16, 2017 10:06 am
[2017-11-16] MEDS ORDERED: PANT40TA2 PO (10:08)
[2017-11-16] MEDS ORDERED: NS IV 500 ML 500 ML IV PRN (10:08)
--- NOTE | 2017-11-16 10:09 | Discharge Inst-Surgical ---
D/C Lap Instructions-KIDO New, Converted, or Re-Newed RX: RX on Chart Follow Up PRN Activity as tolerated High Fiber Diet 25g or more per day Avoid Alcohol, Caffeine, Spicy [place] and Acid foods. Drink 64 fluid oz or more of fluids per day. Symptoms to Report: Fever over 101 degree F, Nausea/Vomiting If any problems/questions: Contact your physician or go to Emergency Room SKYE RAMIREZ MD Nov 16, 2017 10:09 am
[2017-11-16] MEDS ORDERED: NS IV 500 ML 500 ML ONE (10:14)
[2017-11-16] MEDS ORDERED: HYDROcodone/APAP 5 MG/325 MG (LORTAB) TAB PO PRN (10:15)
[2017-11-16] MEDS ORDERED: morphine INJ 10 MG/ML 1ML (SYR OR VIAL) IV PRN (10:15)
[2017-11-16] MEDS ORDERED: HURRICAINE EXT TUBE (BENZOCAINE) XX PRN (10:15)
[2017-11-16] MEDS ORDERED: ACETAMINOPHEN 325 MG TABLET/CAPLET (TYLENOL) PO PRN (10:15)
[2017-11-16] MEDS ORDERED: LIDOCAINE JELLY 2% (XYLOCAINE) 5 ML TUBE MM PRN (10:15)
[2017-11-16] MEDS ORDERED: ONDANSETRON 4 MG/2 ML (SDV) Z0FRAN IV PRN (10:15)
[2017-11-16 10:33] VITALS: BP 156/105
[2017-11-16] MEDS ORDERED: MIDAZOLAM 2 MG/2 ML (VERSED) VIAL ONE ×4 (11:13→11:14)
[2017-11-16] MEDS ORDERED: fentaNYL INJECTION 100 MCG/2 ML AMP ONE (11:13)
[2017-11-16] MEDS ORDERED: LIDOCAINE JELLY 2% (XYLOCAINE) 5 ML TUBE ONE (11:13)
[2017-11-16] MEDS ORDERED: HURRICAINE EXT TUBE (BENZOCAINE) ONE (11:14)
[2017-11-16] MEDS: MIDAZOLAM 2 MG/2 ML (VERSED) VIAL IVP PRN ×4 (11:25→11:39)
[2017-11-16] MEDS: fentaNYL INJECTION 100 MCG/2 ML AMP IVP PRN ×2 (11:26→11:32)
--- NOTE | 2017-11-16 12:04 | Progress Note-Post Operative ---
Post-Operative Progess Note Surgeon (s)/Palm And Back Forger (s) Surgeon SKYE RAMIREZ MD Palm And Back Forger: none Pre-Operative Diagnosis GERD, dysphagia Post-Operative Diagnosis reflux esophagitis(class B), intact lap band, no erosion or slippage, moderate gastritis. Procedure & Operative Findings Date of Procedure 11/16/17 Procedure Performed/Findings EGD with bx. Anesthesia Type CS Estimated Blood Loss Estimated blood loss (mL): minimal Specimens/Packing Specimens Removed GE jxn, antrum SKYE RAMIREZ MD Nov 16, 2017 12:04 pm
[2017-11-16 12:05] VITALS: BP 135/85
[2017-11-16 12:30] VITALS: BP 156/99
[2017-11-16 12:36] VITALS: BP 156/99
--- NOTE | 2017-11-16 23:04 | OPERATIVE REPORT ---
DATE OF SERVICE: 11/16/2017 ATTENDING PRIMARY CARE PHYSICIAN: Dr. Joshua. PREOPERATIVE DIAGNOSIS: Dysphagia, gastroesophageal reflux disease. POSTOPERATIVE DIAGNOSES: 1. Reflux esophagitis, class B, intact band, no erosion or identifiable band slippage. 2. Moderate severity gastritis. PROCEDURE PERFORMED: Esophagogastroduodenoscopy with biopsy. SURGEON: Skye Ramirez MD. ANESTHESIA: Conscious sedation. ESTIMATED BLOOD LOSS: Minimal. FINDINGS: Reflux esophagitis, class B, intact gastric pouch and band with no band erosion or no identifiable slippage. Stomach around the band was patent, moderate severity gastritis towards the stomach antrum, pylorus and duodenum appeared normal. DISPOSITION: The patient tolerated the procedure well. INDICATIONS: The patient is a 52-year-old male with substernal chest pressure, burning sensation that extended up to the neck and intralaryngeal region. He has had issues with reflux before; however, he states that this is a different sensation. He is status post laparoscopic adjustable gastric band in 2009. He reports that after the band was placed, he had some issues with reflux and regurgitation; however, has not had those type of classic symptoms for some amount of time. In the past two months, his symptoms have worsened. He has had one episode regurgitation. He also again reports chest tightness, shortness of breath and did undergo cardiac catheterization in 08/2017, and found to have coronary artery disease and underwent placement of 3 stents. DESCRIPTION OF PROCEDURE: The patient was brought to the endoscopy suite, laid in the left lateral decubitus position. After adequate IV pain and sedating medications and conscious sedation anesthesia, the mouthpiece was applied. Endoscope was placed in the mouth, visualizing the pharynx and hypopharyngeal region. Vocal cords, epiglottis and vallecula identified and appeared to be normal. The endoscope was then gently intubated in the esophageal opening esophagus insufflated. Endoscope was then advanced to the first, second and third portions of the esophagus. At the level of the GE junction, a reflux esophagitis, class B identified. There were no ulcers or strictures identified in this region. The gastric pouch appeared to be intact as well with no band erosion or slippage identifiable. The stomach where the band was placed was patent and the endoscope easily passed through this region. The endoscope was then retroflexed again visualizing an intact placement of the band with no band erosion. There was a moderate severity gastritis noted towards the stomach antrum. No formal ulcers, polyps or any neoplasms identified. A biopsy was taken of the stomach antrum as well as the GE junction with forceps with visualization of good hemostasis. The endoscope was also advanced to the pylorus and the first and second portions of duodenum, which appeared normal with no distal obstructions. The endoscope was then withdrawn while taking a second look and with no additional findings. The patient tolerated the procedure well. We will recommend the necessary lifestyle with diet accommodation, status post laparoscopic adjustable gastric band, which include small and more frequent meals, avoidance of eating at night as well as not drinking during meals. We will also recommend continued high protein diet with lean meat protein sources, but once he does feel the feeling of fullness or tightness sensation, he is instructed to stop eating at that time and do not drain until approximately one hour after the meal. We also recommend regularly scheduled exercise. We will also start him on Protonix 40 mg daily for the gastritis. Job ID: [id number] DocumentID: [id number] Dictated Date: 11/16/2017 12:03:47 [employer] Date: 11/16/2017 23:03:30 Dictated By: SKYE RAMIREZ MD
== END 2017-11-16 12:40 | disposition home or self-care (01) ==
LOC: ENDO 09:55
PROVIDERS: ATTEND Surgery
DX: K21.0 Gastro-esophageal reflux disease with esophagitis (principal); K29.70 Gastritis, unspecified, without bleeding; E11.9 Type 2 diabetes mellitus without complications; I10 Essential (primary) hypertension; I25.10 Atherosclerotic heart disease of native coronary artery without angina pectoris; Z98.84 Bariatric surgery status; Z95.5 Presence of coronary angioplasty implant and graft; Z79.82 Long term (current) use of aspirin; Z79.84 Long term (current) use of oral hypoglycemic drugs; Z79.899 Other long term (current) drug therapy; Z87.891 Personal history of nicotine dependence
CPT/HCPCS: 82962

== ENCOUNTER 2018-03-05 09:56 | Day surgery (SDC) | payer BC ==
--- OUTSIDE RECORDS SUMMARY | 2018-02-28 07:40 | XMS REPORT ---
Author Author PAN OSORIO [facility] Address [address] [place] [address] Care Team Providers Care Dot Compliance Specialist Name Role Phone PAN OSORIO Unavailable PROBLEMS Unknown Problems ALLERGIES No Information SOCIAL HISTORY Never Assessed PLAN OF CARE VITAL SIGNS MEDICATIONS Medication Instructions Dosage Frequency Start Date End Date Duration Status Tamiflu 75 MG Orally Once a day 1 capsule 24h Nov, 10 days Active RESULTS No Results PROCEDURES No Known procedures IMMUNIZATIONS No Known Immunizations
[~2018-03-05] VITALS: Ht 188 cm; Wt 122.0 kg
[~2018-03-05 09:56] MED LIST changes: +HEParin (CATH LAB) 0 ML IV ONE; +LIDOCAINE 1% INJ 20 ML 20 ML VIAL ONE; -METF1000 PO; +METF10002 PO; +NS IV 1000 ML 1,000 ML IV SCH; +NS IV 1000 ML 1,000 ML ONE; +PANT40TA2 PO
[2018-03-05] MEDS ORDERED: NS IV 1000 ML 1,000 ML ONE (10:20)
[2018-03-05] MEDS ORDERED: HEParin (CATH LAB) 2,000 ML IV ONE (10:21)
[2018-03-05 10:35] VITALS: BP 160/111
[2018-03-05 10:46] LABS: HEMOGLOBIN 16.2 G/DL (13.3-17.7); MEAN PLATELET VOLUME 9.1 FL (7.4-10.4); RED BLOOD COUNT 5.12 10^6/uL (4.35-5.85); RED CELL DISTRIBUTION WIDTH 13.2 % (10.0-14.5); WHITE BLOOD COUNT 7.5 10^3/uL (4.3-11.0)
[2018-03-05 10:58] LABS: PROTHROMBIN TIME PATIENT 12.9 SEC (12.2-14.7)
[2018-03-05 11:07] LABS: ALANINE AMINOTRANSFERASE 20 U/L (0-55); ALBUMIN 4.5 GM/DL (3.2-4.5); ALKALINE PHOSPHATASE 66 U/L (40-136); BILIRUBIN,TOTAL 1.5 MG/DL (0.1-1.0); BUN/CREATININE RATIO 15; CALCIUM 9.7 MG/DL (8.5-10.1); CARBON DIOXIDE 26 MMOL/L (21-32); CHLORIDE 103 MMOL/L (98-107); CHOLESTEROL 194 MG/DL (< 200); CREATININE SERUM 1.04 MG/DL (0.60-1.30); GFR ESTIMATED > 60; GLUCOSE 152 MG/DL (70-105); HDL CHOLESTEROL 46 MG/DL (40-60); POTASSIUM 3.7 MMOL/L (3.6-5.0); SODIUM 140 MMOL/L (135-145); TOTAL PROTEIN 7.2 GM/DL (6.4-8.2); TRIGLYCERIDES 147 MG/DL (<150); VLDL CHOLESTEROL 29 MG/DL (5-40)
[2018-03-05] MEDS ORDERED: ASPI-999 PO (11:57)
[2018-03-05] MEDS ORDERED: CLOP75TA69 PO (11:57)
[2018-03-05] MEDS ORDERED: NITR0.4T SL (11:57)
[2018-03-05] MEDS ORDERED: ATEN100T PO (11:57)
[2018-03-05] MEDS ORDERED: POTA20TA8 PO (11:57)
[2018-03-05] MEDS ORDERED: NS IV 1000 ML 1,000 ML IV SCH ×2 (12:45→14:00)
[2018-03-05] MEDS ORDERED: fentaNYL INJECTION 100 MCG/2 ML AMP ONE (12:49)
[2018-03-05] MEDS ORDERED: MIDAZOLAM 5 MG/5 ML (VERSED) VIAL ONE (12:49)
[2018-03-05] MEDS ORDERED: diphenhydrAMINE 50 MG/ML INJ (BENADRYL) ONE (12:49)
[2018-03-05] MEDS ORDERED: LIDOCAINE 1% INJ 20 ML 20 ML VIAL ONE (12:49)
--- NOTE | 2018-03-05 12:56 | Cardiac Procedure Note-CS/ASA ---
Pre-Procedure Note Pre-Op Procedure Note H&P Reviewed The H&P was reviewed, patient examined and no changes noted. Date H&P Reviewed: Mar 05, 2018 Time H&P Reviewed: 12:55 Conscious Sedation Pre-Proced Time Reviewed: 12:55 ASA Class: 3 Airway Mallampati Classification: (tribe appropriate class) I. II. III, IV Lungs Heart ASA score ASA 1: a normal healthy patient ASA 2: a patient with a mild systemic disease (mid diabetes, controlled hypertension, obesity ASA 3: a patient with a severe systemic disease that limits activity (angina , COPD, prior Myocardial infarction) ASA 4: a patient with an incapacitating disease that is a constant threat to life (CHF, renal failure) ASA 5: a moribund patient not expected to survive 24 hrs. (ruptured aneurysm) ASA 6: a declared brain patient whose organs are being harvested. For emergent operations, add the letter E after the classification Grade 2 Sedation Plan: Analgesia, Amnesia, Plan communicated to team members, Discussed options with patient/fam, Discussed risks with patient/fam Note The patient is an appropriate candidate to undergo the planned procedure, sedation, and anesthesia. The patient immediately re-assessed prior to indication. CINDY REGAN MD FACP FACC CCDS Mar 05, 2018 12:55
[2018-03-05] MEDS ORDERED: HEParin DRIP 25000 UNIT/500ML 500 ML IV ONE (13:43)
[2018-03-05] MEDS ORDERED: PATIENT MAY USE OWN MEDS, ALL PO SCH (14:00)
[2018-03-05] MEDS ORDERED: NON-FORMULARY MEDICATION 1 EA EA (Nitroglycerin (Nitrostat) 0.4 MG) SL PRN (14:00)
[2018-03-05] MEDS ORDERED: HEParin 1000 UNIT/ML (10ML VIAL) FOR BOLUS IV SCH ×2 (14:00→17:30)
[2018-03-05] MEDS ORDERED: NITROGLYCERIN 0.4 MG SL TABS BTL 25'S SL PRN (16:00)
--- NOTE | 2018-03-05 16:04 | Cardiology Discharge Summary ---
Diagnosis/Chief Complaint Date of Admission 03/05/18 Date of Discharge 03/05/18 Admission Diagnosis Unstable angina Final/Discharge Diagnosis Unstable angina Multivessel CAD on card cath of 03/05/18 (80% distal LMCA stenosis; 99-100 prox RCA stenosis; LVEF 55%; normal LVEDP) DM II Hypertension GERD HTN Hyperlipidemia, treated with statin H/O lap band surgery BMI of approx 34.5 Chronic chew tobacco use; we have advised him to quit immediately and completely Mild bilat carotid arterial disease without evidence of hemodynamic significance per u/s of May 2017 Chief Complaint/HPI Chief Complaint/HPI Given symptoms of unstable angina and demonstrated of advanced CAD on card cath carried out today, we recommend urgent CABG. This was discussed with the patient and his . We spoke with Dr Ryan of the CV surgical service at [facility] who has accepted the patient in transfer. Arrangements are being made. Discharge Summary Procedures Card cath on 03/05/18 Hospital Course Pending Labs Laboratory Tests 03/05/18 10:36: White Blood Count 7.5, Red Blood Count 5.12, Hemoglobin 16.2, Hematocrit 44, Mean Corpuscular Volume 87, Mean Corpuscular Hemoglobin 32, Mean Corpuscular Hemoglobin Concent 37, Red Cell Distribution Width 13.2, Platelet Count 254, Mean Platelet Volume 9.1, Prothrombin Time 12.9, INR Comment 1.0, Activated Partial Thromboplast Time 31, Sodium Level 140, Potassium Level 3.7, Chloride Level 103, Carbon Dioxide Level 26, Anion Gap 11, Blood Urea Nitrogen 16, Creatinine 1.04, Estimat Glomerular Filtration Rate > 60, BUN/Creatinine Ratio 15, Glucose Level 152, Calcium Level 9.7, Total Bilirubin 1.5, Aspartate Amino Transf (AST/SGOT) 15, Alanine Aminotransferase (ALT/SGPT) 20, Alkaline Phosphatase 66, Total Protein 7.2, Albumin 4.5, Triglycerides Level 147, Cholesterol Level 194, LDL Cholesterol Direct 133, VLDL Cholesterol 29, HDL Cholesterol 46 Discussion & Recommendations Home Medications Reviewed patient Home Medication Reconciliation performed by pharmacy medication reconciliations plastics technician and/or nursing. Patients Allergies have been reviewed. Discharge Home Medications: Reviewed and agree with Discharge Medication list on patient's Discharge Instruction sheet CINDY REGAN MD FACP FAC CCDS Mar 05, 2018 16:04
--- NOTE | 2018-03-05 16:23 | CARDIAC CATHETERIZATION ---
DATE OF SERVICE: 03/05/2018 CARDIAC CATHETERIZATION REPORT The patient is a 53-year-old man with known coronary artery disease who has previously had stenting of the left circumflex and right coronary arteries and has now been experiencing symptoms consistent with unstable angina. He comes in for cardiac catheterization, which was carried out after having obtained an informed consent. PROCEDURE: He was brought to the cardiac catheterization laboratory in a fasting state. Right groin was prepared and draped in the usual sterile fashion. Lidocaine 1% was used for local anesthesia. Modified Seldinger technique was used to advance a 5-Burmese sheath in the right femoral artery. A 5-Burmese JL4 catheter was used for left coronary angiography. A 5-Burmese JR4 catheter for right coronary angiography. A 5-Burmese pigtail catheter was used for left heart catheterization, left ventricular angiography. At the end of the procedure, following angiography of the right femoral artery, Mynx was used to achieve hemostasis following sheath removal. He tolerated the procedure well. HEMODYNAMICS: Left ventricular end-diastolic pressure following coronary angiography was 11 mmHg. There was no significant pressure gradient on pullback across the aortic valve. Ascending aortic pressure was 114/69 with a mean of 90 mmHg. LEFT VENTRICULAR ANGIOGRAPHY: Left ventricular angiography was carried out in the right anterior oblique projection only. Global left ventricular systolic function is normal. No distinct regional wall motion abnormalities seen. Left ventricular ejection fraction approximately 55%. There does not appear to be significant mitral regurgitation. CORONARY ANGIOGRAPHY: Left main coronary artery has 80% distal stenosis, which extends into the origins of the left anterior descending and the left circumflex arteries. There is a patent stent in the left circumflex artery extending into a large obtuse marginal branch. The right coronary artery is dominant. This occluded in its proximal portion with slow antegrade flow. CONCLUSIONS: 1. Severe multivessel coronary artery disease including 80% distal stenosis of the left main coronary artery and proximal, near total occlusion of the right coronary artery. 2. Well preserved global left ventricular systolic function with ejection fraction of approximately 55%. 3. Normal left ventricular end-diastolic pressure. DISCUSSION AND RECOMMENDATIONS: Based on results of the study and the symptoms of unstable angina, we recommend urgent coronary artery bypass surgery. We reviewed this with him and his . I have spoken with Dr. Ryan of cardiovascular surgical services at [facility] and he has kindly accepted the patient in transfer. Arrangements were being made at the time of this dictation. Job ID: [id number] DocumentID: [id number] Dictated Date: 03/05/2018 13:57:40 Hem Inspector Date: 03/05/2018 16:22:26 Dictated By: CINDY REGAN MD, MA, FACP, FACC, MTDD
[2018-03-05] MEDS ORDERED: NON-FORMULARY MEDICATION 1 EA EA (Metformin HCl 1,000 MG) PO SCH (17:00)
[2018-03-05] MEDS ORDERED: metFORMIN 500 MG (GLUCOPHAGE) TAB PO SCH (17:00)
[2018-03-05] MEDS ORDERED: HEParin DRIP 25000 UNIT/500ML 500 ML IV SCH (17:30)
[2018-03-05] MEDS ORDERED: ATORVASTATIN 80 MG (LIPITOR) TABLET PO SCH (21:00)
[2018-03-06] MEDS ORDERED: KCL 20 MEQ TAB (K-DUR) PO SCH (07:00)
[2018-03-06] MEDS ORDERED: LOSARTAN 100 MG (COZAAR) TABLET PO SCH (09:00)
[2018-03-06] MEDS ORDERED: TRIAMTERENE/HCTZ 75-50 (MAXZIDE,DYAZIDE) TABLET PO SCH (09:00)
[2018-03-06] MEDS ORDERED: NON-FORMULARY MEDICATION 1 EA EA (Atenolol 100 MG) PO SCH (09:00)
[2018-03-06] MEDS ORDERED: ASPIRIN 81 MG CHEW (CHILDREN'S ASA) PO SCH (09:00)
[2018-03-06] MEDS ORDERED: ATENOLOL 50 MG (TENORMIN) TAB PO SCH (09:00)
[2018-03-06] MEDS ORDERED: CLOPIDOGREL 75 MG (PLAVIX) TABLET PO SCH (09:00)
[2018-03-06] MEDS ORDERED: NON-FORMULARY MEDICATION 1 EA EA (Triamterene/Hydrochlorothiazid (Triamterene-Hctz 37.5-25 PO SCH (09:00)
[2018-03-06] MEDS ORDERED: NON-FORMULARY MEDICATION 1 EA EA (Canagliflozin (Invokana) 300 MG) PO SCH (09:00)
== END 2018-03-05 16:30 | disposition short-term general hospital (02) ==
LOC: CATH 09:56 → ICU 14:08 → CATH 16:30
PROVIDERS: ATTEND Nurse Practitioner Family
DX: I25.110 Atherosclerotic heart disease of native coronary artery with unstable angina pectoris (principal); I10 Essential (primary) hypertension; E78.5 Hyperlipidemia, unspecified; E11.9 Type 2 diabetes mellitus without complications; K21.9 Gastro-esophageal reflux disease without esophagitis; I65.23 Occlusion and stenosis of bilateral carotid arteries; F17.220 Nicotine dependence, chewing tobacco, uncomplicated; Z95.5 Presence of coronary angioplasty implant and graft; Z68.34 Body mass index [BMI] 34.0-34.9, adult; Z98.84 Bariatric surgery status; Z79.899 Other long term (current) drug therapy
CPT/HCPCS: 36415; 80053; 80061; 85027; 85610; 85730; 87081; 93458

== ENCOUNTER → 2018-07-23 | Outpatient (CLI) | payer BC ==
[~2018-07-23] MED LIST changes: -HEParin (CATH LAB) 0 ML IV ONE; -LIDOCAINE 1% INJ 20 ML 20 ML VIAL ONE; -LOSA100T28 PO; +LOSA100T8 PO; +METF-399 PO; -METF10002 PO; +NITR0.4T SL; -NS IV 1000 ML 1,000 ML IV SCH; -NS IV 1000 ML 1,000 ML ONE; +POTA20TA8 PO; -SPIR25TA3 PO; +SPIR25TA5 PO
== END ==
LOC: RAD 16:53
PROVIDERS: ATTEND Nurse Practitioner Family
DX: M17.12 Unilateral primary osteoarthritis, left knee (principal); Z53.8 Procedure and treatment not carried out for other reasons

== ENCOUNTER → 2018-07-27 | Outpatient (CLI) | payer BC ==
--- NOTE | 2018-07-27 09:27 | Diagnostic Imaging Report ---
PROCEDURE: MRI left joint lower extremity without contrast. TECHNIQUE: Multiplanar, multisequence non contrast-enhanced MRI of the left lower extremity was accomplished. INDICATION: Chronic knee pain. Stands most of the day at work. History of previous scope in 2007. COMPARISON: No priors available for comparison. TECHNIQUE: Multiplanar, multisequence MRI of the knee without contrast. FINDINGS: The extensor mechanism is intact. The PCL is diffusely ill-defined and irregular, likely on the basis of degenerative signal with a chronic tear not excluded. The ACL demonstrates diffuse internal hyperintensity, likely due to degenerative changes with an internal small cystic area not excluded. No complete discontinuity. The MCL demonstrates no discontinuity either although there is mild edema along its proximal fibers which could be due to a strain. The lateral collateral ligamentous complex appears intact. Mild bowing laterally however is seen perhaps due to underlying joint effusion. There is minimal hyperintensity noted in the proximal fibers of the lateral collateral ligament proper which is likely on the basis of a strain. There is diffuse heterogeneous signal throughout the entire medial meniscus consistent with a multidirectional degenerative type tear. Portions of the medial meniscus appear extruded into the medial gutter extending proximally adjacent to the medial femoral condyle. The lateral meniscus contains hyperintensity throughout the entire lateral meniscus, as well. This is, to a lesser degree, than the medial meniscus but does extend up to the femoral surface anteriorly into the tibial surface posteriorly consistent with degenerative type tear, as well. Cartilage throughout the lateral compartment demonstrates focal loss overlying the mid lateral tibial plateau which is moderate in nature. The defect is approximately 1.2 cm in length. The medial compartment demonstrates severe loss of cartilage with subchondral edema in the adjacent tibia and femur. There is a moderate joint effusion which is heterogeneous in nature and contains multiple internal loose bodies. Cystic changes posterior to the fibular head are noted likely ganglia. Internal hypointensities, likely loose bodies, extend into the cystic area. Other cystic changes immediately posterior to the knee along the midline could represent small ganglia, as well. The patellofemoral cartilage demonstrates diffuse heterogeneity with moderate loss overlying the patellar apex. IMPRESSION: 1. Tricompartmental degenerative findings, as described, with a secondary joint effusion containing likely loose bodies. 2. Diffuse multidirectional tears involving the medial and lateral menisci. 3. Likely mild sprain along the proximal MCL and proximal lateral collateral ligament proper. No discontinuity of the visualized ligaments or tendons. 4. Degenerative signal is seen throughout the ACL and PCL, see above description. 5. Cystic changes throughout the posterior knee, likely multiple ganglia. Dictated by: Dictated on workstation # [id number]
== END ==
LOC: RAD 07:36
PROVIDERS: ATTEND Nurse Practitioner Family
DX: S83.242A Other tear of medial meniscus, current injury, left knee, initial encounter (principal); S83.282A Other tear of lateral meniscus, current injury, left knee, initial encounter; M17.12 Unilateral primary osteoarthritis, left knee
CPT/HCPCS: 73721

== ENCOUNTER 2018-08-27 08:30 | Outpatient (RCR) | payer BC ==
[~2018-08-27 08:30] MED LIST changes: +LOSA100T57 PO; -LOSA100T8 PO
== END 2018-11-25 | disposition home or self-care (01) ==
LOC: CARD 08:30
PROVIDERS: ATTEND Internal Medicine
DX: I25.10 Atherosclerotic heart disease of native coronary artery without angina pectoris (principal); I48.0 Paroxysmal atrial fibrillation; R00.2 Palpitations
CPT/HCPCS: 93225; 93226